=== PATIENT | female | born 1935 | race Caucasian/White ===

== ENCOUNTER 2022-09-11 08:31 | Day surgery (SDC) | payer MEDICARE, SELFPAY ==
[2022-09-07 15:13] VITALS: BMI 27.4
[2022-09-11] VITALS (7 sets, daily range): BP systolic 112–161; BP diastolic 60–91; PULSE 62–87; RESP 13–22; TEMP 36.3–36.8; O2SAT 90–98; BMI 26.6
--- NOTE | 2022-09-11 | PATH_ITS ---
[facility] Accession Number: [id number] No. of containers..01 Tissue . 01 Material submitted: . hemorrhoids - LEFT LATERAL HEMORRHOID . 01 Diagnosis: Left Lateral Hemorrhoid, Excision: Anorectal junctional mucosa with the following features: - Dilated vessels, consistent with hemorrhoids. - Focal erosion with prolapse changes, suggestive of solitary rectal ulcer. - Incidental hyperplastic polyp. - Negative for dysplasia or malignancy. MRV 09/13/2022 1459 Local . 01 Electronically signed: . Hank Herr MD, PhD, Pathologist NPI- [id number] . 01 Gross description: . The specimen is received in formalin labeled with the patient's name, , and left lateral hemorrhoid, and consists of two irregular montes nodular fragments of mucosa. The first measures 2.0 x 1.8 x 1.0 cm and the margin is inked blue. The second fragment measures 1.5 x 0.5 x 0.3 cm and the margin is inked green. Sectioning reveals a montes to congested cut surface with grossly dilated vasculature. [employer] sections are submitted in cassette A1. ([id number]) /MRV 09/13/2022 1457 Local . 01 Pathologist provided ICD-10: K62.1, K62.3, K64.9 . 01 CPT . 387848 Specimen Comment: A courtesy copy of this report has been sent to [phone] Performed at: 01 [facility] [address] [place] [address] [id number] MD Cole Mojica MD Phone: [phone]
[2022-09-11] MEDS: LACTATED RINGERS 1,000 ML 42 ML IV (08:56)
[2022-09-11 09:10] LABS: COVID19 -Nasal RAPID Negative (Negative)
--- NOTE | 2022-09-11 09:25 | P.HP_ITS ---
History of Present Illness History of Present Illness Date Patient Seen: 09/11/22 Time Patient Seen: 09:26 Chief complaint: EXCISIONAL HEMORRHOIDECTOMY Narrative: Franklin is here for her excisional hemorrhoidectomy. See office note from last month for details. 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) Hx of foot surgery (01/2014) Hx of hand surgery (03/1998) Hx of hand surgery (01/2008) Hx of left cataract extraction (05/2010) Hx of right cataract extraction (05/2016) Status post arthroscopy Status post bunionectomy Family & Social History Tobacco & Substance use: Smoking Status Never smoker alcohol intake current Substance Use Type does not use Meds Home Medications and Allergies Home Medications Medication Instructions Recorded Confirmed Type chlorpheniramine maleate 4 mg 2 mg PO BID ##0 04/05/16 09/11/22 History tablet multivitamin (Multiple Vitamins 1 tab PO QDAY #0 tabs 05/07/16 09/11/22 History tablet) amlodipine 5 mg tablet (Norvasc) 5 mg PO QDAY #90 tabs 11/02/16 09/11/22 Rx ursodiol 500 mg tablet 500 mg PO BID ##0 11/23/16 09/11/22 History metoprolol tartrate 25 mg tablet 25 mg PO BID #180 tabs 04/08/17 09/11/22 Rx coenzyme Q10 100 mg capsule (Co 100 mg PO QDAY ##0 04/16/17 09/11/22 History Q-10) cyanocobalamin (vitamin B-12) 1,000 mcg PO QDAY ##0 04/16/17 09/11/22 History 1,000 mcg tablet,extended release tramadol 50 mg tablet 50 mg PO BID #60 tabs 05/06/17 09/11/22 Rx celecoxib 200 mg capsule (Celebrex) 200 mg PO QDAY ##0 06/20/17 09/11/22 History furosemide 20 mg tablet 20 mg PO DAILY 08/01/22 09/11/22 History irbesartan 300 mg tablet 300 mg PO DAILY 08/01/22 09/11/22 History Allergies Allergy/AdvReac Type Severity Reaction Status Date / Time ibuprofen [IBUPROFEN] Allergy Mild COLITIS Verified 09/11/22 09:00 WITH GROUP HOME USE etodolac [ETODOLAC] AdvReac Severe GI PROBLEMS Verified 09/11/22 09:00 Exam Const General: No acute distress Objective Labs Labs: Laboratory Results - last 24 hr 09/11/22 08:45 SARS-CoV-2 (PCR) Negative Assessment & Plan Assessment and plan (1) Hemorrhoids, internal: Status: Acute Plan We discussed risks and benefits of hemorrhoidectomy and she would like to proceed. Time Spent With Patient Critical Care time: I spent a total of [] minutes of critical care time on this patient's care today; this time is exclusive of procedural time.
[2022-09-11] MEDS: FLEETS ENEMA 1 EACH PR (09:34)
--- NOTE | 2022-09-11 10:24 | SUR.OPER ---
Lithotomy on padded OR bed, head on pillow, arms secured on padded arm boards at <90 degrees abduction. Legs secured in padded yellow fins stirrups.
[2022-09-11] MEDS: BUPIVACAINE LIPOSOME 266 MG/20 ML VIAL INJ (10:30)
--- NOTE | 2022-09-11 10:53 | PM.OP.1 ---
Operative Date/Time/Diagnoses Date of procedure: 09/11/22 Time of procedure: 10:53 Pre-op diagnosis: Prolapsing internal hemorrhoids Post-op diagnosis: same Procedure & Clinicians Procedure: Excisional hemorrhoidectomy Same procedure as scheduled: Yes Surgeon: Eduardo Aquino Anesthesia Type: General Operative Notes Procedure in detail: The patient was brought to the operating room and placed on the table in the supine position. General anesthesia was induced via LMA. Legs were placed in lithotomy position in stirrups. The perineum was prepped and draped in the usual fashion. A time-out was performed. The anal canal was lubricated with KY jelly and a [place] retractor was inserted. No abnormalities were seen in the rectum. There was a rather large prolapsing internal hemorrhoid in the left lateral position. We injected some Exparel into the anoderm and excised the hemorrhoid up to its mucosal base about 3 cm above the dentate line using cautery and taking care not to injure the underlying sphincter muscle. There was robust bleeding from the cut mucosal edge which was controlled with a running 0 chromic suture. We ran the chromic suture out to the anoderm to close the defect. At the conclusion of the case there was good hemostasis and no narrowing of the anal canal. The sphincter tone remained intact. The specimen was sent as left lateral hemorrhoid. EBL: 20 mL Specimen: Left lateral hemorrhoid Post-operative Disposition: PACU
== END 2022-09-11 11:51 | disposition home or self-care (01) ==
PROVIDERS: Family Provider Family Medicine; PCP Family Medicine; Referring Provider Surgery; Visit Provider Surgery
PROC: (CPT 46255; principal; 2022-09-11 09:45)
DX: K64.8 Other hemorrhoids (principal); Z20.822 Contact with and (suspected) exposure to COVID-19
CPT/HCPCS: 46255; 87635; C9290; J2405; J2704; J3010